=== PATIENT | female | born 1955 | race Caucasian/White ===

== ENCOUNTER 2020-08-31 10:57 | Emergency (ER) | payer MEDICARE ==
[~2020-08-31] VITALS: Ht 162.6 cm; Wt 88.5 kg
[2020-08-31] MEDS ORDERED: COZAAR 25 MG TA25 M1 PO (11:08)
[2020-08-31] MEDS ORDERED: IBUPROFEN 600600 M1 PO (13:49)
[2020-08-31] MEDS ORDERED: NORCO5 PO ×2 (13:49→13:55)
[2020-08-31 14:10] VITALS: BP 135/79
== END 2020-08-31 14:13 | disposition home or self-care (01) ==
LOC: M.ERS 10:57
DX: S93.491A Sprain of other ligament of right ankle, initial encounter (principal); S93.691A Other sprain of right foot, initial encounter; M25.561 Pain in right knee; I10 Essential (primary) hypertension; Z79.899 Other long term (current) drug therapy; Z88.8 Allergy status to other drugs, medicaments and biological substances; X50.1XXA Overexertion from prolonged static or awkward postures, initial encounter; Y93.89 Activity, other specified; Y92.89 Other specified places as the place of occurrence of the external cause; Y99.9 Unspecified external cause status